=== PATIENT | female | born 1995 | race Caucasian/White ===

== ENCOUNTER 2018-01-27 08:28 | Inpatient (IN) | payer OTHER, SELFPAY ==
[2018-01-27] MEDS: LR 1,000 ML IV (09:59)
[2018-01-27] MEDS: LACTATED RINGER'S 1000 ML IV (10:15)
[2018-01-27] MEDS: miSOPROStol 50 MCG 1/2 TAB (S0191) PO (10:25)
[2018-01-27 10:30] LABS: HEMATOCRIT 33.7 % (36.0-47.0); MEAN CORPUSCULAR HEMOGLOBIN 29.7 pg (27.0-33.0); MEAN CORPUSCULAR HGB CONC 32.6 g/dl (32.0-36.5); MEAN CORPUSCULAR VOLUME 91.1 fl (80.0-96.0); PLATELET COUNT, AUTOMATED 241 10^3/uL (150-450); RED CELL DISTRIBUTION WIDTH 13.9 % (11.5-14.5); WHITE BLOOD COUNT 10.8 10^3/uL (4.0-10.0)
[2018-01-27] MEDS: miSOPROStol 50 MCG 1/2 TAB (S0191) PV (15:15)
[2018-01-27] MEDS ORDERED: PROMETHAZINE INJ 25 MG/ML VIAL (J2550) IM (22:00)
[2018-01-27] MEDS: BUTORPHANOL 2 MG/ML INJ (J0595) IV (22:04)
[2018-01-27] MEDS: PROMETHAZINE INJ 25 MG/ML VIAL (J2550) IV (22:15)
[2018-01-28] MEDS ORDERED: FENTANYL 2MCG/ML ROPIVACAINE 0.2% IN 0.9% NACL 100ML IVBAG As Ordered (03:33)
[2018-01-28] MEDS ORDERED: diphenhydrAMINE INJ 50MG/ML VIAL (J1200) IV (05:00)
[2018-01-28] MEDS ORDERED: REFRIGERATOR IV KEYS XX (05:00)
[2018-01-28] MEDS ORDERED: ePHEDrine SULFATE 25 MG/5 ML(5MG/ML) SYRINGE IV (05:00)
[2018-01-28] MEDS ORDERED: LACTATED RINGER'S 1000 ML IV (05:00)
[2018-01-28] MEDS ORDERED: EPIDURAL/PCA KEYS XX (05:00)
[2018-01-28] MEDS ORDERED: NALOXONE INJ 0.4 MG/1 ML VIAL (J2310) IV (05:00)
[2018-01-28] MEDS ORDERED: EPIDURAL COMMENT XX (05:00)
[2018-01-28] MEDS ORDERED: ONDANSETRON 4MG/2ML VIAL (J2405) IV (05:00)
[2018-01-28] MEDS ORDERED: FENTANYL/ROPIVACAINE/NACL BAG 100 ML EPIDURAL (05:00)
[2018-01-28] MEDS: OXYTOCIN DRIP 30 UNITS in APPROPRIATE DILUENT 1 EA IV ×2 (07:29→14:42)
[2018-01-28] MEDS: LR 1,000 ML IV (07:29)
[2018-01-28] MEDS ORDERED: METOCLOPRAMIDE INJ 10MG/2ML VIAL (J2765) IV (14:45)
[2018-01-28] MEDS ORDERED: MEASLES,MUMPS,RUBELLA VACCINE INJ (MMR-II) (90707) SC (14:45)
[2018-01-28] MEDS ORDERED: RHOGAM 300 MCG (1500 IU) INJ (J2790) IM (14:45)
[2018-01-28] MEDS ORDERED: DIBUCAINE 1% OINTMENT 30GM TOP (14:45)
[2018-01-28] MEDS: IBUPROFEN 800 MG TAB PO (17:46)
[2018-01-28] MEDS: DOCUSATE SODIUM 100 MG CAP PO (21:00)
[2018-01-29] MEDS: IBUPROFEN 800 MG TAB PO ×2 (05:38→13:42)
[2018-01-29] MEDS: DOCUSATE SODIUM 100 MG CAP PO ×2 (08:21→21:00)
[2018-01-29] MEDS: PRENATAL VITAMINS CHEWABLE TABLET PO (08:21)
[2018-01-29] MEDS: ACETAMINOPHEN TAB 650MG DOSE (2X325MG) PO (18:32)
[2018-01-30] MEDS: PRENATAL VITAMINS CHEWABLE TABLET PO (08:43)
[2018-01-30] MEDS: DOCUSATE SODIUM 100 MG CAP PO (08:43)
[2018-01-30] MEDS: ACETAMINOPHEN TAB 650MG DOSE (2X325MG) PO (08:48)
== END 2018-01-30 14:30 | disposition home or self-care (01) | DRG 807 ==
LOC: M LDI 08:28 → M OBS 01-28 17:22
PROVIDERS: Obstetrics & Gynecology
PROC: 3E0DXGC Introduction of Other Therapeutic Substance into Mouth and Pharynx, External Approach (ICD-10-PCS; 2018-01-27)
PROC: 10E0XZZ Delivery of Products of Conception, External Approach (ICD-10-PCS; principal; 2018-01-28)
DX: O48.0 Post-term pregnancy (principal); Z37.0 Single live birth; Z3A.40 40 weeks gestation of pregnancy; O24.429 Gestational diabetes mellitus in childbirth, unspecified control

== ENCOUNTER 2018-12-16 16:38 | Emergency (ER) | payer OTHER ==
[~2018-12-16] VITALS: Ht 160 cm; Wt 72.7 kg
[~2018-12-16 16:38] MED LIST: IBUP-1114 PO; MAPA500T2 PO; PRENTAB9 PO
[2018-12-16] MEDS ORDERED: SING10TA32 PO (16:45)
[2018-12-16] MEDS ORDERED: TERB250T12 PO (16:45)
[2018-12-16] MEDS ORDERED: CETI10CA13 PO (16:45)
[2018-12-16] MEDS ORDERED: FLUORESCEIN OPHTH 1 MG STRIP OD ONE (18:00)
[2018-12-16] MEDS ORDERED: TETRACAINE 0.5% OPHTH SOLN 4ML OD ONE (18:00)
[2018-12-16] MEDS ORDERED: OCUF0.25 OP (18:39)
[2018-12-16 18:47] VITALS: BP 128/58
[2018-12-16] MEDS ORDERED: OCUF0.25 OD (18:50)
== END 2018-12-16 18:49 | disposition home or self-care (01) ==
LOC: M ED 16:38
DX: S05.01XA Injury of conjunctiva and corneal abrasion without foreign body, right eye, initial encounter (principal); X58.XXXA Exposure to other specified factors, initial encounter; Y92.89 Other specified places as the place of occurrence of the external cause; J30.2 Other seasonal allergic rhinitis; Z79.899 Other long term (current) drug therapy; Z88.0 Allergy status to penicillin